=== PATIENT | female | born 1955 | race Caucasian/White ===

== ENCOUNTER 2018-04-27 08:56 | Emergency (ER) | payer OTHER ==
[~2018-04-27] VITALS: Ht 157.5 cm; Wt 67.1 kg
[~2018-04-27 08:56] MED LIST: AMOX1TAB5 PO; CATAFLAM50 MG PO; EXPECTORAN100 MG/52 PO; MUCINEX1200 MG/BO; PREDNISOLO15 MG/5 ML PO
== END 2018-04-27 10:25 | disposition home or self-care (01) ==
LOC: ER 08:56
DX: H10.11 Acute atopic conjunctivitis, right eye (principal)

== ENCOUNTER 2018-08-21 15:46 | Emergency (ER) | payer OTHER ==
[~2018-08-21] VITALS: Ht 157.5 cm; Wt 66.7 kg
[2018-08-21] MEDS ORDERED: ORPHENADRINE C100 MG PO (18:09)
[2018-08-21] MEDS ORDERED: KETO10TA2 PO (18:09)
[2018-08-21] MEDS ORDERED: CYCLOBENZAPRINE10 MG PO (18:09)
== END 2018-08-21 18:51 ==
LOC: ER 15:46
DX: M94.0 Chondrocostal junction syndrome [Tietze] (principal); R07.89 Other chest pain

== ENCOUNTER 2021-05-23 12:51 | Outpatient (CLI) | payer OTHER ==
[~2021-05-23 12:51] MED LIST changes: +CYCLOBENZAPRINE10 MG PO; +KETO10TA2 PO; +ORPHENADRINE C100 MG PO
== END 2021-05-23 13:15 | disposition home or self-care (01) ==
LOC: NUCLEAR 12:51
PROVIDERS: ATTEND Specialist
DX: M81.0 Age-related osteoporosis without current pathological fracture (principal)

== ENCOUNTER → 2022-10-09 | Outpatient (CLI) | payer OTHER | END | disposition home or self-care (01) | LOC: SONOGRAMA 07:32 | PROVIDERS: ATTEND Specialist | DX: R10.2 Pelvic and perineal pain (principal) ==

== ENCOUNTER 2023-05-01 08:31 | Emergency (ER) | payer OTHER ==
[~2023-05-01] VITALS: Ht 157.5 cm; Wt 70.3 kg
[2023-05-01] MEDS ORDERED: BACTRIM DS TAB1 EACH PO (10:24)
== END 2023-05-01 10:31 | disposition home or self-care (01) ==
LOC: ER 08:31
DX: N39.0 Urinary tract infection, site not specified (principal); R30.0 Dysuria
CPT/HCPCS: 36415; 96372; 99284; J0696

== ENCOUNTER → 2023-08-03 | Emergency (ER) | payer OTHER ==
[~2023-08-03] VITALS: Ht 157.5 cm; Wt 70.8 kg
[~2023-08-03] MED LIST changes: +BACTRIM DS TAB1 EACH PO
[2023-08-03 11:18] LABS: HEMATOCRIT 40.2 % (36.0-45.00); HEMOGLOBIN 13.6 g/dL (12.0-15.00); MEAN CELL VOLUME 92.3 fL (80.00-100.00); MEAN CORPUSCULAR HEMOGLOBIN 31.3 pg (27.00-32.0); MEAN CORPUSCULAR HGB CONC 33.9 g/dl (32.0-36.0); PLATELET COUNT 308 K/uL (150-450); RED BLOOD COUNT 4.36 M/uL (4.00-6.00)
[2023-08-03 12:12] LABS: CALCIUM 9.8 mg/dL (8.5-10.1); CREATININE SERUM 0.83 mg/dL (0.55-1.02); GFR 68.16; POTASSIUM 4.22 mEq/L (3.5-5.1)
[2023-08-03 13:09] LABS: ABG PH 7.434 (7.35-7.45); BASE EXCESS -0.2 mmol/l; BICARBONATE 23.6 mmol/l (23-25); SaO2 97.9 %; Tco2 24.7 mmol/l; allen test SATISFACTORY; o2 21 %; puncture site RADIAL RIGHT
== END | disposition home or self-care (01) ==
LOC: ER 09:28
PROVIDERS: General Practice
DX: J11.1 Influenza due to unidentified influenza virus with other respiratory manifestations (principal); Z20.822 Contact with and (suspected) exposure to COVID-19

== ENCOUNTER 2023-10-08 10:11 | Outpatient (CLI) | payer OTHER | END 2023-10-08 10:17 | disposition home or self-care (01) | LOC: MAMO-SONO 10:11 | PROVIDERS: ATTEND Specialist | DX: N60.11 Diffuse cystic mastopathy of right breast (principal); N60.12 Diffuse cystic mastopathy of left breast; Z12.31 Encounter for screening mammogram for malignant neoplasm of breast ==

== ENCOUNTER 2023-10-18 12:50 | Outpatient (CLI) | payer OTHER | END 2023-10-18 12:51 | disposition home or self-care (01) | LOC: NUCLEAR 12:50 | PROVIDERS: ATTEND Specialist | DX: M81.0 Age-related osteoporosis without current pathological fracture (principal) ==

== ENCOUNTER 2025-05-10 07:49 | Emergency (ER) | payer OTHER ==
[~2025-05-10] VITALS: Ht 157.5 cm; Wt 72.1 kg
[2025-05-10] MEDS ORDERED: CEFTRIAXONE SODIUM 2,000 MG VIAL IV ONE (09:15)
[2025-05-10] MEDS ORDERED: ZYRTEC10 M3 PO (11:33)
[2025-05-10] MEDS ORDERED: MONDOXYNE NL100 MG PO (11:33)
[2025-05-10] MEDS ORDERED: IBUPROFEN600 MG PO (11:33)
== END 2025-05-10 11:48 | disposition home or self-care (01) ==
LOC: ER 07:49
DX: L03.90 Cellulitis, unspecified (principal)
CPT/HCPCS: 96365; 99282; J0696